=== PATIENT | female | born 1960 | race Caucasian/White ===

== ENCOUNTER 2017-05-06 10:20 | Observation (INO) | payer BC, OTHER ==
[2017-05-06] MEDS ORDERED: Sodium Chloride 0.9% 2.5 ML Syringe FLUSH PRN (10:53)
[2017-05-06] MEDS ORDERED: Sodium Chloride 0.9% 10 ML Syringe FLUSH PRN (10:53)
[2017-05-06] MEDS ORDERED: Sodium Chloride 0.9% 1,000 ML IV ONE (10:56)
--- NOTE | 2017-05-06 10:58 | EDM.PDOC ---
ED HPI GENERAL MEDICAL PROBLEM - General Chief Complaint: Neuro Symptoms/Deficits Stated Complaint: light headed Time Seen by Provider: 05/06/17 10:41 - History of Present Illness INITIAL COMMENTS - FREE TEXT/NARRATIVE: HISTORY AND PHYSICAL: History of present illness: Patient is a 56-year-old white female who presents with a concern of dizziness and near syncope over last 2 days she's had multiple episodes. Patient denies chest pain palpitations or other concern Review of systems: As per history of present illness and below otherwise all systems reviewed and negative. Past medical history: As per history of present illness and as reviewed below otherwise noncontributory. Surgical history: As per history of present illness and as reviewed below otherwise noncontributory. Social history: No reported history of drug or alcohol abuse. Family history: As per history of present illness and as reviewed below otherwise noncontributory. Physical exam: HEENT: Atraumatic, normocephalic, pupils reactive, negative for conjunctival pallor or scleral icterus, mucous membranes moist, throat clear, neck supple, nontender, trachea midline. Lungs: Clear to auscultation, breath sounds equal bilaterally, chest nontender. Heart: S1S2, regular, negative for clicks, rubs, or JVD. Abdomen: Soft, nondistended, nontender. Negative for masses or hepatosplenomegaly. Negative for costovertebral tenderness. Pelvis: Stable nontender. Genitourinary: Deferred. Rectal: Deferred. Extremities: Atraumatic, negative for cords or calf pain. Neurovascular unremarkable. Neuro: Awake, alert, oriented. Cranial nerves II through XII unremarkable. Cerebellum unremarkable. Motor and sensory unremarkable throughout. Exam nonfocal. Diagnostics: CBC CMP PT/INR troponin d-dimer chest x-ray EKG CT brain orthostatic vital signs Therapeutics: Normal saline 1 L bolus Impression: #1 near syncope Definitive disposition and diagnosis as appropriate pending reevaluation and review of above. - Related Data Allergies Allergy/AdvReac Type Severity Reaction Status Date / Time No Known Allergies Allergy Verified 05/06/17 10:28 Home Meds: Home Meds . [No Known Home Meds] 05/06/17 [History] Past Medical History HEENT History: Reports: None Cardiovascular History: Reports: None Respiratory History: Reports: None Gastrointestinal History: Reports: None Genitourinary History: Reports: None WREATH MAKER History: Reports: Musculoskeletal History: Reports: None Neurological History: Reports: None Psychiatric History: Reports: None Endocrine/Metabolic History: Reports: None Hematologic History: Reports: None Immunologic History: Reports: None Oncologic (Cancer) History: Reports: None Dermatologic History: Reports: None - Infectious Disease History Infectious Disease History: Reports: Chicken Pox, Measles, Mumps - Past Surgical History Head Surgeries/Procedures: Reports: None HEENT Surgical History: Reports: None Cardiovascular Surgical History: Reports: None Respiratory Surgical History: Reports: None GI Surgical History: Reports: None Female Surgical History: Reports: None Endocrine Surgical History: Reports: None Neurological Surgical History: Reports: None Musculoskeletal Surgical History: Reports: None Dermatological Surgical History: Reports: None Social & Family History - Family History Family Medical History: Noncontributory - Tobacco Use Smoking Status *Q: Never Smoker - Caffeine Use Caffeine Use: Reports: Coffee - Recreational Drug Use Recreational Drug Use: No ED ROS GENERAL - Review of Systems Review Of Systems: ROS reveals no pertinent complaints other than HPI. ED EXAM, GENERAL - Physical Exam Exam: See Below (See dictation) Course - Vital Signs Last Recorded V/S: Last Vital Signs Temp 36.8 C 05/06/17 10:28 Pulse 69 05/06/17 10:28 Resp 18 05/06/17 10:28 BP 154/99 H 05/06/17 10:28 Pulse Ox 95 05/06/17 10:28 - Orders/Labs/Meds Orders: Active Orders 24 hr Category Date Time Status Cardiac Monitoring [RC] . DIRECTED Care 05/06/17 10:52 Active EKG Documentation Completion [RC] STAT Care 05/06/17 10:52 Active Chest 1V Frontal [CR] Stat Exams 05/06/17 10:53 Taken Head wo Cont [CT] Stat Exams 05/06/17 10:52 Taken Sodium Chloride 0.9% [Saline Flush] Med 05/06/17 10:53 Active 10 ml FLUSH ASDIRECTED PRN Sodium Chloride 0.9% [Saline Flush] Med 05/06/17 10:53 Active 2.5 ml FLUSH ASDIRECTED PRN Saline Lock Insert [OM.PC] Stat Oth 05/06/17 10:52 Ordered Medication Orders Sodium Chloride (Saline Flush) 10 ml FLUSH ASDIRECTED PRN PRN Reason: Keep Vein Open Sodium Chloride (Saline Flush) 2.5 ml FLUSH ASDIRECTED PRN PRN Reason: Keep Vein Open Labs: Laboratory Tests 05/06/17 05/06/17 05/06/17 Range/Units 11:05 11:05 11:05 WBC 5.49 (4.0-11.0) K/uL RBC 5.26 (4.30-5.90) M/uL Hgb 15.7 (12.0-16.0) g/dL Hct 45.4 (36.0-46.0) % MCV 86.3 (80.0-98.0) fL MCH 29.8 (27.0-32.0) pg MCHC 34.6 (31.0-37.0) g/dL RDW Std Deviation 39.3 (28.0-62.0) fl RDW Coeff of Gabriel 13 (11.0-15.0) % Plt Count 248 (150-400) K/uL MPV 9.70 (7.40-12.00) fL Neut % (Auto) 52.9 (48.0-80.0) % Lymph % (Auto) 35.9 (16.0-40.0) % [place] % (Auto) 7.5 (0.0-15.0) % Eos % (Auto) 3.3 (0.0-7.0) % Baso % (Auto) 0.4 (0.0-1.5) % Neut # (Auto) 2.9 (1.4-5.7) K/uL Lymph # (Auto) 2.0 (0.6-2.4) K/uL [place] # (Auto) 0.4 (0.0-0.8) K/uL Eos # (Auto) 0.2 (0.0-0.7) K/uL Baso # (Auto) 0.0 (0.0-0.1) K/uL Nucleated RBC % 0.0 /100WBC Nucleated RBCs # 0 K/uL INR 1.00 (0.86-1.11) D-Dimer, Quantitative < 0.19 (0.0-0.52) mg/LFEU Sodium 140 (136-146) mmol/L Potassium 4.5 (3.5-5.1) mmol/L Chloride 104 (98-110) mmol/L Carbon Dioxide 28 (21-31) mmol/L BUN 12 (6.0-23.0) mg/dL Creatinine 0.7 (0.6-1.5) mg/dL Est Cr Clr Drug Dosing 88.30 mL/min Estimated GFR (MDRD) > 60.0 ml/min Glucose 95 (60-110) mg/dL Calcium 9.3 (8.8-10.8) mg/dL Total Bilirubin 0.5 (0.1-1.5) mg/dL AST 17 (5-40) IU/L ALT 34 (8-54) IU/L Alkaline Phosphatase 58 (40-150) Troponin I < 0.10 (0.0-0.29) NG/ML Total Protein 7.6 (6.0-8.0) g/dL Albumin 4.4 (3.5-5.0) g/dL Globulin 3.2 (2.0-3.5) g/dL Albumin/Globulin Ratio 1.4 (1.3-2.8) Meds: Medications Generic Name Dose Route Start Last Admin Trade Name Freq PRN Reason Stop Dose Admin Sodium Chloride 10 ml 05/06/17 10:53 Saline Flush FLUSH ASDIRECTED PRN Keep Vein Open Sodium Chloride 2.5 ml 05/06/17 10:53 Saline Flush FLUSH ASDIRECTED PRN Keep Vein Open Discontinued Medications Generic Name Dose Route Start Last Admin Trade Name Freq PRN Reason Stop Dose Admin Sodium Chloride 1,000 mls @ 999 mls/hr 05/06/17 10:56 05/06/17 11:22 Normal Saline IV 05/06/17 11:56 999 mls/hr STAT ONE Administration Departure - Departure Time of Disposition: 12:15 Disposition: Refer to Observation Condition: Good Clinical Impression: Near syncope - Discharge Information Referrals: PCP,Unknown [Primary Care Provider] - Forms: ED Department Discharge - My Orders Last 24 Hours: My Active Orders 05/06/17 10:52 Cardiac Monitoring [RC] . DIRECTED EKG Documentation Completion [RC] STAT Head wo Cont [CT] Stat Saline Lock Insert [OM.PC] Stat 05/06/17 10:53 Chest 1V Frontal [CR] Stat Sodium Chloride 0.9% [Saline Flush] 10 ml FLUSH ASDIRECTED PRN Sodium Chloride 0.9% [Saline Flush] 2.5 ml FLUSH ASDIRECTED PRN - Assessment/Plan Last 24 Hours: My Active Orders 05/06/17 10:52 Cardiac Monitoring [RC] . DIRECTED EKG Documentation Completion [RC] STAT Head wo Cont [CT] Stat Saline Lock Insert [OM.PC] Stat 05/06/17 10:53 Chest 1V Frontal [CR] Stat Sodium Chloride 0.9% [Saline Flush] 10 ml FLUSH ASDIRECTED PRN Sodium Chloride 0.9% [Saline Flush] 2.5 ml FLUSH ASDIRECTED PRN
[2017-05-06 11:28] LABS: CHLORIDE,CL 104 mmol/L (98-110); SODIUM,NA 140 mmol/L (136-146)
--- NOTE | 2017-05-06 15:48 | PCM.HP ---
H&P History of Present Illness - General Date of Service: 05/06/17 Admit Problem/Dx: Admission Diagnosis/Problem Admission Diagnosis/Problem Near syncope Source of Information: Patient, Provider - History of Present Illness Initial Comments - Free Text/Narative: She drove to [place] and back. She "ate out". She noted that she had several episodes of transient light headedness as if she was about to faint. She notes that she has no known prior history of hypertension. Headache Pain Score (Numeric/FACES): 2 - Related Data Allergies/Adverse Reactions: Allergies Allergy/AdvReac Type Severity Reaction Status Date / Time No Known Allergies Allergy Verified 05/06/17 10:28 Home Medications: Home Meds . [No Known Home Meds] 05/06/17 [History] Past Medical History HEENT History: Reports: None Cardiovascular History: Reports: None. Denies: CAD, Heart Failure, Heart Murmur , Hypertension, PA Respiratory History: Reports: None. Denies: COPD Gastrointestinal History: Reports: None. Denies: Cirrhosis Genitourinary History: Reports: None. Denies: Chronic Renal Insuffiency DIRECTOR INSTITUTION History: Reports: Musculoskeletal History: Reports: None Neurological History: Reports: None. Denies: CVA Psychiatric History: Reports: None Endocrine/Metabolic History: Reports: None. Denies: Diabetes, Type I, Diabetes , Type II Hematologic History: Reports: None Immunologic History: Reports: None Oncologic (Cancer) History: Reports: None Dermatologic History: Reports: None - Infectious Disease History Infectious Disease History: Reports: Chicken Pox, Measles, Mumps - Past Surgical History Head Surgeries/Procedures: Reports: None HEENT Surgical History: Reports: None Cardiovascular Surgical History: Reports: None Respiratory Surgical History: Reports: None GI Surgical History: Reports: None Female Surgical History: Reports: None Endocrine Surgical History: Reports: None Neurological Surgical History: Reports: None Musculoskeletal Surgical History: Reports: None Dermatological Surgical History: Reports: None Social & Family History - Family History Family Medical History: Noncontributory - Tobacco Use Smoking Status *Q: Never Smoker Second Hand Smoke Exposure: No - Caffeine Use Caffeine Use: Reports: Coffee - Alcohol Use Days Per Week of Alcohol Use: 1 Number of Drinks Per Day: 3 Total Drinks Per Week: 3 Date of Last Drink: 05/02/17 - Recreational Drug Use Recreational Drug Use: No H&P Review of Systems - Review of Systems: Review Of Systems: See Below General: Denies: Fever, Chills HEENT: Denies: Sore Throat Pulmonary: Denies: Shortness of Breath, Cough, Sputum Cardiovascular: Denies: Chest Pain, Palpitations, Dyspnea on Exertion Gastrointestinal: Denies: Abdominal Pain, Anorexia, Black Stool, Bloody Stool, Decreased Appetite, Difficulty Swallowing, Hematemesis, Hematochezia, Melena Genitourinary: Denies: Dysuria, Frequency, Hematuria Exam - Exam Exam: See Below - Vital Signs Vital Signs: Last Vital Signs Temp 98.4 F 05/06/17 15:29 Pulse 66 05/06/17 15:29 Resp 18 05/06/17 15:29 BP 142/81 H 05/06/17 15:29 Pulse Ox 96 05/06/17 15:32 Orthostatic Blood Pressure [ 154/89 Standing] Orthostatic Blood Pressure [ 142/81 Supine] Orthostatic Blood Pressure [ 147/93 Sitting] Weight: 98.067 kg - Exam General: Alert, Oriented, Cooperative HEENT: Conjunctiva Clear, EOMI Neck: Supple, Trachea Midline Lungs: Clear to Auscultation, Normal Respiratory Effort Cardiovascular: Regular Rate, Regular Rhythm GI/Abdominal Exam: Soft, Non-Tender (Female) Exam: Deferred Rectal (Female) Exam: Deferred Extremities: Normal Inspection, Non-Tender. No: Pedal Edema Neurological: Cranial Nerves Intact, Normal Speech Psychiatric: Alert, Normal Affect. No: Agitated - Patient Data Result Diagrams: 05/06/17 11:05 05/06/17 11:05 *Q Meaningful Use (ADM) - VTE *Q VTE Criteria *Q: - Stroke *Q Stroke Criteria *Q: - AMI *Q AMI Criteria *Q: - Problem List (1) Essential hypertension SNOMED Code(s): 22035809 ICD Code: I10 - ESSENTIAL (PRIMARY) HYPERTENSION Status: Acute Current Visit: Yes (2) Near syncope SNOMED Code(s): 847565926 ICD Code: R55 - SYNCOPE AND COLLAPSE Status: Acute Current Visit: Yes Problem List Initiated/Reviewed/Updated: Yes Orders Last 24hrs: Active Orders 24 hr Category Date Time Status Communication Order [RC] PER UNIT ROUTINE Care 05/06/17 15:39 Ordered Oxygen Therapy [RC] PRN Care 05/06/17 15:40 Ordered Telemetry Monitoring [Cardiac Monitoring] [RC] Q8H Care 05/06/17 12:26 Active VTE/DVT Education [RC] PER UNIT ROUTINE Care 05/06/17 15:40 Ordered Vital Signs [RC] Q4H Care 05/06/17 15:40 Ordered 2 Gram Sodium Diet [DIET] Diet 05/06/17 Dinner Ordered CORTISOL [CHEM] Routine Lab 05/07/17 08:00 Ordered MAGNESIUM [CHEM] Routine Lab 05/06/17 15:40 Ordered T4 FREE [CHEM] Routine Lab 05/06/17 15:37 Ordered TSH [CHEM] Stat Lab 05/06/17 15:37 Ordered Resuscitation Status Routine Resus Stat 05/06/17 15:40 Ordered Medication Orders Sodium Chloride (Saline Flush) 10 ml FLUSH ASDIRECTED PRN PRN Reason: Keep Vein Open Sodium Chloride (Saline Flush) 2.5 ml FLUSH ASDIRECTED PRN PRN Reason: Keep Vein Open Assessment/Plan Comment:: orthostatic blood pressure measurements close monitoring telemetry 8 am cortisol thyroid functions. possible discharge in am. Shiraz Bauer MD
[2017-05-06] MEDS ORDERED: Acetaminophen 500 MG Tab PO PRN (15:49)
[2017-05-06] MEDS ORDERED: Ibuprofen 400 MG Tab PO PRN ×2 (18:30→18:31)
[2017-05-06] MEDS: Lisinopril 10 MG Tab PO SCH ×2 (19:24→21:00)
[2017-05-07] MEDS: Lisinopril 10 MG Tab PO SCH (08:12)
--- NOTE | 2017-05-07 13:05 | PCM.DCSUM1 ---
Discharge Summary - Hospital Course Brief History: she was admitted with periods of light headedness and feelings of near syncope. - Discharge Data Discharge Date: 05/07/17 Discharge Disposition: Home, Self-Care 01 Condition: Fair - Discharge Diagnosis/Problem(s) (1) Essential hypertension SNOMED Code(s): 10440869 ICD Code: I10 - ESSENTIAL (PRIMARY) HYPERTENSION Status: Acute Current Visit: Yes (2) Near syncope SNOMED Code(s): 548714770 ICD Code: R55 - SYNCOPE AND COLLAPSE Status: Acute Current Visit: Yes - Patient Summary/Data Hospital Course: she was noted to be hypertensive. She had negative orthostatic blood pressure changes. Her lab results including 8 am cortisol, chemistries and thyroid functions were normal. lipid panel is pending at discharge. She was started on lisinopril. Her blood pressure normalized and she is asymptomatic at discharge. - Discharge Plan Home Medications: Home Meds . [No Known Home Meds] 05/06/17 [History] Patient Handouts: Near-Syncope, [id number], Lisinopril tablets, Hypertension Referrals: Mary Santoyo SALON RECEPTIONIST [Nurse Practitioner] - (Please call [facility] on Monday to set up one week post hospital follow-up appointment with Mary Santoyo NP) - Patient Data Vitals - Most Recent: Last Vital Signs Temp 97.9 F 05/07/17 12:00 Pulse 63 05/07/17 04:00 Resp 16 05/07/17 12:00 BP 124/79 05/07/17 12:00 Pulse Ox 90 L 05/07/17 12:00 Orthostatic Blood Pressure [ 127/85 Standing] Orthostatic Blood Pressure [ 122/73 Supine] Orthostatic Blood Pressure [ 120/77 Sitting] Weight - Most Recent: 98.067 kg I&O - Last 24 hours: Intake & Output 05/06/17 05/07/17 05/07/17 22:59 06:59 14:59 Intake Total 450 400 Output Total 450 1200 Balance 0 -800 Lab Results - Last 24 hrs: Laboratory Results - last 24 hr 05/07/17 Range/Units 08:00 Cortisol 9.4 (7.9-17.3) ug/dL Med Orders - Current: Current Medications Acetaminophen (Tylenol Extra Strength) 500 mg PO Q4H PRN PRN Reason: Pain Last Admin: 05/06/17 16:44 Dose: 500 mg Ibuprofen (Motrin) 400 mg PO Q6H PRN PRN Reason: Pain Last Admin: 05/06/17 19:24 Dose: 400 mg Lisinopril (Prinivil) 10 mg PO BID TOOTIE Last Admin: 05/07/17 08:12 Dose: 10 mg Sodium Chloride (Saline Flush) 10 ml FLUSH ASDIRECTED PRN PRN Reason: Keep Vein Open Sodium Chloride (Saline Flush) 2.5 ml FLUSH ASDIRECTED PRN PRN Reason: Keep Vein Open Discontinued Medications Sodium Chloride (Normal Saline) 1,000 mls @ 999 mls/hr IV STAT ONE Stop: 05/06/17 11:56 Last Admin: 05/06/17 11:22 Dose: 999 mls/hr *Q Meaningful Use (DIS) - VTE *Q VTE Criteria *Q: - Stroke *Q Stroke Criteria *Q: - AMI *Q AMI Criteria *Q:
[2017-05-07] MEDS ORDERED: Lisinopril 10 MG Tab PO ONE (13:11)
--- NOTE | 2017-05-08 13:25 | CR ---
EXAM DATE: 05/06/17 PATIENT'S AGE: 56 Patient: ONEIL MARSH Facility: [place], [place] Site . Site : 1960 Study: XRay Chest [id number]/28/2017 11:29:23 AM Ordering Physician: Michael Farr Final Report: HISTORY: Chest pain and shortness of breath. Findings: Single AP view of the chest is provided. The lung volumes are diminished but the lungs are clear and there is no evidence for pleural effusion or pneumothorax. Cardiac silhouette size is within normal limits. Dictated by Larry Gil MD @ May 06 2017 11:49AM (Electronic Signature) Report Signed by Proxy. EVERT
--- NOTE | 2017-05-08 13:26 | CT ---
EXAM DATE: 05/06/17 PATIENT'S AGE: 56 Patient: ONEIL MARSH Facility: [facility], [place], [place] : 1960 Study: CT Head [id number]/[id number] 11:49:52 AM Ordering Physician: BLANCA Final Report: HISTORY: Lightheadedness, dizziness. TECHNIQUE: Noncontrast head CT. COMPARISON: No prior. FINDINGS: There is no acute ischemic infarct or acute intracranial hemorrhage. No mass effect or midline shift. No hydrocephalus. No acute loss of levy-white differentiation. No extra-axial collection or hematoma. The mastoid air cells are clear. Paranasal sinuses clear. No skull fracture. IMPRESSION: No acute intracranial disease. Dictated by Jose Garcia MD @ 05/06/2017 12:05:19 PM Dictated by: Jose Garcia MD @ 05/06/2017 12:05:23 (Electronic Signature) Report Signed by Proxy. [facility]
== END 2017-05-07 13:29 | disposition home or self-care (01) ==
LOC: MW.ED 10:20 → MW.ICU 12:16
PROVIDERS: ADMIT Family Medicine; ATTEND Family Medicine
DX: I10 Essential (primary) hypertension (principal); R55 Syncope and collapse
CPT/HCPCS: 36415; 70450; 71010; 80053; 80061; 82533; 83735; 84439; 84443; 84484; 85025; 85379; 85610; 93005; 96360; 99285; A9270; G0378; J7040; 99284

== ENCOUNTER 2020-08-11 08:11 | Day surgery (SDC) | payer MEDICAID, OTHER ==
[~2020-08-11 08:11] MED LIST: Bupivacaine 0.25% 10 ML SDV ONE; Desflurane 240 ML Bottle ONE; Dexamethasone 4 MG/ML 5 ML MDV ONE; Fluorescein 5 ML Vial ONE; Glycopyrrolate 0.2 MG/ML SDV ONE; Ketorolac 30 MG/ML SDV ONE; Midazolam 1 MG/ML 2 ML SDV ONE; Morphine 10 MG/ML Syringe ONE; Ondansetron 4 MG/2 ML SDV ONE; Propofol 200 MG/20 ML SDV ONE; Rocuronium Bromide 50 MG/5 ML Syringe ONE; Sodium Chloride 0.9% 20 ML ONE; Sugammadex Sodium 200 MG/2 ML VIAL ONE; ceFAZolin 1 GM Vial ONE; ceFAZolin 2 GM in Premix Bag 1 BAG IV ONE; fentaNYL 100 MCG/2 ML SDV ONE
[2020-08-11] MEDS: Lactated Ringers 1,000 ML IV SCH ×2 (08:45→12:20)
[2020-08-11] MEDS ORDERED: Citric Acid/Sodium Citrate Solution 30 ML Cup PO ONE (09:08)
--- NOTE | 2020-08-11 09:10 | PCM.PREANE ---
Preanesthetic Assessment - Anesthesia/Transfusion/Family Hx Anesthesia History: Prior Anesthesia Without Reaction (colonoscopy) Family History of Anesthesia Reaction: No Transfusion History: No Prior Transfusion(s) - Review of Systems General: No Symptoms Pulmonary: No Symptoms Cardiovascular: No Symptoms Gastrointestinal: Other (heartburn) Neurological: No Symptoms Other: Reports: None - Physical Assessment NPO Status Date: 08/10/20 Vital Signs: Last Vital Signs Temp 97.7 F 08/11/20 08:55 Pulse 64 08/11/20 08:55 Resp 16 08/11/20 08:55 BP 124/77 08/11/20 08:55 Pulse Ox 93 L 08/11/20 08:55 Height: 5 ft 7 in Weight: 88.904 kg ASA Class: 2 Mental Status: Alert & Oriented x3 Airway Class: Mallampati = 2 Dentition: Reports: Normal Dentition ROM/Head Extension: Full Lungs: Clear to Auscultation, Normal Respiratory Effort Cardiovascular: Regular Rate, Regular Rhythm - Lab Values: Laboratory Last Values WBC 5.48 K/uL (4.0-11.0) 08/11/20 08:32 RBC 5.26 M/uL (4.30-5.90) 08/11/20 08:32 Hgb 15.1 g/dL (12.0-16.0) 08/11/20 08:32 Hct 46.4 % (36.0-46.0) H 08/11/20 08:32 MCV 88.2 fL (80.0-98.0) 08/11/20 08:32 MCH 28.7 pg (27.0-32.0) 08/11/20 08:32 MCHC 32.5 g/dL (31.0-37.0) 08/11/20 08:32 RDW Std Deviation 39.8 fl (28.0-62.0) 08/11/20 08:32 RDW Coeff of Gabriel 13 % (11.0-15.0) 08/11/20 08:32 Plt Count 273 K/uL (150-400) 08/11/20 08:32 MPV 10.10 fL (7.40-12.00) 08/11/20 08:32 Neut % (Auto) 46.7 % (48.0-80.0) L 08/11/20 08:32 Lymph % (Auto) 39.8 % (16.0-40.0) 08/11/20 08:32 [place] % (Auto) 9.5 % (0.0-15.0) 08/11/20 08:32 Eos % (Auto) 3.6 % (0.0-7.0) 08/11/20 08:32 Baso % (Auto) 0.4 % (0.0-1.5) 08/11/20 08:32 Neut # (Auto) 2.6 K/uL (1.4-5.7) 08/11/20 08:32 Lymph # (Auto) 2.2 K/uL (0.6-2.4) 08/11/20 08:32 [place] # (Auto) 0.5 K/uL (0.0-0.8) 08/11/20 08:32 Eos # (Auto) 0.2 K/uL (0.0-0.7) 08/11/20 08:32 Baso # (Auto) 0.0 K/uL (0.0-0.1) 08/11/20 08:32 Nucleated RBC % 0.0 /100WBC 08/11/20 08:32 Nucleated RBCs # 0 K/uL 08/11/20 08:32 - Allergies Allergies/Adverse Reactions: Allergies Allergy/AdvReac Type Severity Reaction Status Date / Time No Known Allergies Allergy Verified 08/11/20 08:32 - Blood Blood Available: Yes - Anesthesia Plan Pre-Op Medication Ordered: Antacids (bicitra) - Acknowledgements Anesthesia Type Planned: General Anesthesia Pt an Appropriate Candidate for the Planned Anesthesia: Yes Alternatives and Risks of Anesthesia Discussed w Pt/Guardian: Yes Pt/Guardian Understands and Agrees with Anesthesia Plan: Yes PreAnesthesia Questionnaire HEENT History: Reports: Other (See Below) Other HEENT History: wears glasses, has dental braces Cardiovascular History: Reports: None Respiratory History: Reports: None Gastrointestinal History: Reports: None Genitourinary History: Reports: None SANITATION SUPERINTENDENT History: Reports: , Spontaneous Musculoskeletal History: Reports: None Neurological History: Reports: None Psychiatric History: Reports: None Endocrine/Metabolic History: Reports: Obesity/BMI 30+, Osteopenia Hematologic History: Reports: None Immunologic History: Reports: None Oncologic (Cancer) History: Reports: None Dermatologic History: Reports: None - Infectious Disease History Infectious Disease History: Reports: Chicken Pox, Measles, Mumps - Past Surgical History Head Surgeries/Procedures: Reports: None HEENT Surgical History: Reports: None Cardiovascular Surgical History: Reports: None Respiratory Surgical History: Reports: None GI Surgical History: Reports: Colonoscopy Female Surgical History: Reports: None Endocrine Surgical History: Reports: None Neurological Surgical History: Reports: None Musculoskeletal Surgical History: Reports: None Oncologic Surgical History: Reports: None Dermatological Surgical History: Reports: None - SUBSTANCE USE Tobacco Use Status *Q: Never Tobacco User - HOME MEDS Home Medications: Home Meds Calcium Carbonate [Calcium] 150 mg PO DAILY 08/06/20 [History] Fish Oil/Nabb-3 Fatty Acids [Fish Oil 1,000 MG] 1,000 mg PO DAILY 08/06/20 [History] Multivitamin 1 tab PO DAILY 08/06/20 [History] Psyllium Husk [Daily Fiber] 500 mg PO BID 08/06/20 [History] - CURRENT (IN HOUSE) MEDS Current Meds: Current Medications Lactated Ringer's (Ringers, Lactated) 1,000 mls @ 125 mls/hr IV ASDIRECTED TOOTIE Discontinued Medications Bupivacaine HCl (Sensorcaine-Mpf 0.25%) Confirm Administered Dose 10 ml .ROUTE .STK-MED ONE Stop: 08/11/20 07:46 Cefazolin Sodium (Ancef) Confirm Administered Dose 2 gm .ROUTE .STK-MED ONE Stop: 08/11/20 07:46 Desflurane (Suprane) Confirm Administered Dose 240 ml .ROUTE .STK-MED ONE Stop: 08/11/20 07:34 Dexamethasone (Dexamethasone) Confirm Administered Dose 20 mg .ROUTE .STK-MED ONE Stop: 08/11/20 07:46 Fentanyl (Sublimaze) Confirm Administered Dose 200 mcg .ROUTE .STK-MED ONE Stop: 08/11/20 07:45 Fluorescein Sodium (Ak-Fluor) Confirm Administered Dose 5 ml .ROUTE .STK-MED ONE Stop: 08/11/20 07:46 Glycopyrrolate (Robinul) Confirm Administered Dose 0.2 mg .ROUTE .STK-MED ONE Stop: 08/11/20 07:46 Acetaminophen (Ofirmev 1000 Mg/100 Ml) Confirm Administered Dose 100 mls @ as directed .ROUTE .STK-MED ONE Stop: 08/11/20 07:34 Sodium Chloride (Normal Saline) Confirm Administered Dose 20 mls @ as directed .ROUTE .STK-MED ONE Stop: 08/11/20 07:46 Cefazolin Sodium/Dextrose 2 gm (/ Premix) 50 mls @ 100 mls/hr IV ONETIME ONE Stop: 08/11/20 08:24 Ketorolac Tromethamine (Toradol) Confirm Administered Dose 30 mg .ROUTE .STK-MED ONE Stop: 08/11/20 07:46 Midazolam HCl (Versed 1 Mg/Ml) Confirm Administered Dose 2 mg .ROUTE .ST-MED ONE Stop: 08/11/20 07:45 Morphine Sulfate (Morphine) Confirm Administered Dose 10 mg .ROUTE .ST-MED ONE Stop: 08/11/20 07:46 Ondansetron HCl (Zofran) Confirm Administered Dose 4 mg .ROUTE .ST-MED ONE Stop: 08/11/20 07:45 Propofol (Diprivan 20 Ml) Confirm Administered Dose 600 mg .ROUTE .ST-MED ONE Stop: 08/11/20 07:45 Rocuronium [place] (Rocuronium [place]) Confirm Administered Dose 100 mg .ROUTE .STK-MED ONE Stop: 08/11/20 07:54 Sugammadex Sodium ([place]) Confirm Administered Dose 200 mg .ROUTE .ST-MED ONE Stop: 08/11/20 07:34
[2020-08-11 09:13] LABS: BLOOD UREA NITROGEN,BUN 14 mg/dL (7.0-18.0); CARBON DIOXIDE,CO2 30.3 mmol/L (21.0-32.0); CHLORIDE,CL 106 mmol/L (98-107); GLUCOSE RANDOM 91 mg/dL (74-106); SODIUM,NA 143 mmol/L (136-145)
[2020-08-11] MEDS ORDERED: Citric Acid/Sodium Citrate Solution 30 ML Cup ONE (09:25)
[2020-08-11] MEDS ORDERED: Morphine 10 MG/ML Syringe IVPUSH ONE (10:15)
[2020-08-11] MEDS ORDERED: Furosemide 40 MG/4 ML VIAL ONE (10:35)
[2020-08-11] MEDS ORDERED: Sugammadex Sodium 200 MG/2 ML VIAL ONE (10:45)
[2020-08-11] MEDS ORDERED: Acetaminophen/oxyCODONE 325-5 MG Tab PO PRN ×2 (11:08)
[2020-08-11] MEDS ORDERED: Promethazine 25 MG/ML SDV IM PRN (11:08)
[2020-08-11] MEDS ORDERED: Ketorolac 30 MG/ML SDV IVPUSH ONE (11:08)
[2020-08-11] MEDS ORDERED: Morphine 4 MG/ML Syringe IVPUSH PRN (11:08)
[2020-08-11] MEDS ORDERED: Ondansetron 4 MG/2 ML SDV IVPUSH PRN (11:08)
--- NOTE | 2020-08-11 11:14 | PCM.OPNOTE ---
- General Post-Op/Procedure Note Date of Surgery/Procedure: 08/11/20 Operative Procedure(s): total vaginal hysterectomy anterior colporrhaphy cystoscopy Findings: 3rd degree uterine prolapse, 4th degree cystocele Pre Op Diagnosis: incomplete uterovaginal prolapse. Post-Op Diagnosis: Same Primary Surgeon: Mary Hammond Secondary Surgeon: Kilo Trammell Anesthesia Provider: Khurram Ceron Firmware Architect: Galdino Kathleen Pathology: uterus and vaginal mucosa Fluid Replacement, Intraop: 1,500 EBL in mLs: 75 Complications: None Known Condition: Good
[2020-08-11] MEDS ORDERED: Ketorolac 30 MG/ML SDV IVPUSH SCH (11:15)
--- NOTE | 2020-08-11 11:46 | PCM.POSTAN ---
POST ANESTHESIA ASSESSMENT - MENTAL STATUS Mental Status: Alert, Oriented - VITAL SIGNS Vital Signs: Last Vital Signs Temp 98.1 F 08/11/20 10:58 Pulse 54 L 08/11/20 11:38 Resp 10 L 08/11/20 11:38 BP 117/65 08/11/20 11:38 Pulse Ox 98 08/11/20 11:38 - RESPIRATORY Respiratory Status: Respiratory Rate WNL, Airway Patent, O2 Saturation Stable - CARDIOVASCULAR CV Status: Pulse Rate WNL, Blood Pressure Stable - GASTROINTESTINAL GI Status: No Symptoms - POST OP HYDRATION Hydration Status: Adequate & Stable
--- NOTE | 2020-08-11 12:21 | OR ---
SURGEON: Mary Hammond M.D. DATE OF PROCEDURE: 08/11/2020 PREOPERATIVE DIAGNOSIS: Incomplete uterovaginal prolapse. POSTOPERATIVE DIAGNOSIS: Incomplete uterovaginal prolapse. PROCEDURE: Total vaginal hysterectomy, cystoscopy, and anterior colporrhaphy. PRIMARY SURGEON: Mary Hammond MD CLAIMS DIRECTOR: Kilo Trammell MD ANESTHESIA: General endotracheal. FLUIDS: 1500 mL of crystalloid. ESTIMATED BLOOD LOSS: 75 mL. FINDINGS: Third-degree uterine prolapse, fourth-degree cystocele. Upon cystoscopy, there was copious flow from bilateral ureteral orifices. There was also no evidence of any trauma to the bladder mucosa. COMPLICATIONS: None known. DISPOSITION: Stable to Recovery. BRIEF HISTORY: This is a 60-year-old female who has noticed her cervix protruding from the vaginal orifice and she has had some low back pain, pelvic pressure, difficulty initiating urination, and presents for treatment. She was offered pessary versus vaginal hysterectomy with anterior colporrhaphy. She did appear to have good support from the uterosacral ligaments and there was no defect posteriorly. She declined pessary and desired to proceed with surgical intervention with risks discussed including bleeding; infection; injury to bowel, bladder, blood vessels, or other organs; risk of thromboembolic event; risk of anesthesia; risk of recurrence of 30%; and risk of change in sexual function. Understanding all these risks, she does desire to proceed. DESCRIPTION OF PROCEDURE: With the patient in the dorsal lithotomy position, under adequate general endotracheal anesthesia, the perineum and vagina were prepped with Betadine and draped in usual fashion for vaginal surgery. SCDs were in place. Chiu catheter had been placed, and an appropriate time-out was held. She had received 2 g of Ancef IV. After the time-out, a weighted speculum was placed posteriorly and right angle retractor was placed anteriorly. The cervix was grasped with a Aaron tenaculum, circumscribed using electrocautery. The vaginal mucosa was pushed away from the cervix. The anterior cul-de-sac was entered sharply using Metzenbaum scissors. A finger was placed into the peritoneal cavity and there was no evidence of any adhesions. Therefore, the right angle retractor was placed anteriorly. The posterior cul-de-sac was entered sharply. A Abdirizak-Auvard speculum was placed posteriorly. The uterosacral ligaments were cross clamped, cut, and ligated using Sean ligature of 2-0 Polysorb. This was retained for support of the vaginal apex. Two additional pedicles were taken on the right and the left. The upper pedicle being doubly clamped and doubly ligated over the utero-ovarian ligament. The ovaries and tubes were inspected and appeared normal. These ligaments were inspected and were hemostatic. Therefore, the retained suture was released. The two lower pedicles were carefully inspected and were hemostatic. Therefore, the retained uterosacral ligament ligatures were ligated to the vaginal apices bilaterally. The anterior defect was then assessed, and I felt that it was best to proceed from inferior to cephalad for repair of the anterior defect. Therefore, the vaginal cuff was closed anterior to posteriorly using a running lock suture of 0 Polysorb. Approximately 1.5 cm cephalad from the urethral meatus, the vaginal mucosa was grasped with an Allis clamp. Hydrodissection was performed cephalad towards the vaginal cuff. A scalpel was used to incise the vaginal mucosa. The vaginal mucosa was undermined, and the muscularis layer from the overlying vaginal mucosa and reapproximated in midline using multiple interrupted mattress sutures of 2-0 Polysorb. At this point, cystoscopy was performed after IV fluorescein and Lasix had been given. There was no evidence of any trauma to the bladder mucosa. Both ureteral orifices were identified and there was good flow of urine, which was bright green due to the fluorescein indicating intact ureters with good flow. Therefore, cystoscopy was completed. A new catheter was placed. The vaginal mucosa was very slightly trimmed and closed with a running lock suture of 2-0 Polysorb. The vagina was packed with vaginal packing instilled with water-based lubricant. Final sponge, needle, and instrument counts were reported as correct. There were no known complications. The patient was transferred to Recovery in good condition. PRAMOD / CHERYL /[id number]
[2020-08-11] MEDS: Ketorolac 30 MG/ML SDV IVPUSH SCH ×2 (15:58→22:11)
[2020-08-12] MEDS: Ketorolac 30 MG/ML SDV IVPUSH SCH (05:18)
[2020-08-12 06:15] LABS: BLOOD UREA NITROGEN,BUN 17 mg/dL (7.0-18.0); CARBON DIOXIDE,CO2 27.7 mmol/L (21.0-32.0); CHLORIDE,CL 102 mmol/L (98-107); GLUCOSE RANDOM 103 mg/dL (74-106); POTASSIUM,K 4.5 mmol/L (3.5-5.1); SODIUM,NA 138 mmol/L (136-145)
--- NOTE | 2020-08-12 08:00 | PCM48HPAN ---
Post Anesthesia Note - EVALUATION WITHIN 48HRS OF ANESTHETIC Vital Signs in Normal Range: Yes Patient Participated in Evaluation: Yes Respiratory Function Stable: Yes Airway Patent: Yes Cardiovascular Function Stable: Yes Hydration Status Stable: Yes Pain Control Satisfactory: Yes Nausea and Vomiting Control Satisfactory: Yes Mental Status Recovered: Yes Vital Signs: Last Vital Signs Temp 36.6 C 08/12/20 04:00 Pulse 50 L 08/12/20 04:00 Resp 18 08/12/20 04:00 BP 88/48 L 08/12/20 04:00 Pulse Ox 95 08/12/20 04:00
--- NOTE | 2020-08-12 08:54 | PCM.SURGPN ---
- General Info Date of Service: 08/12/20 Date of Surgery/Procedure: 08/11/20 POD#: 1 Post-Op Diagnosis: incomplete uterovaginal prolapse Functional Status: Reports: Pain Controlled, Tolerating Diet, Ambulating. Denies: Urinating (catheter and packing taken out3 hours ago, no void yet.) - Review of Systems General: Reports: No Symptoms HEENT: Reports: No Symptoms Pulmonary: Reports: No Symptoms Cardiovascular: Reports: No Symptoms Gastrointestinal: Reports: No Symptoms Genitourinary: Reports: No Symptoms Musculoskeletal: Reports: No Symptoms Skin: Reports: No Symptoms Neurological: Reports: No Symptoms Psychiatric: Reports: No Symptoms - Patient Data Vitals - Most Recent: Last Vital Signs Temp 36.3 C 08/12/20 08:00 Pulse 62 08/12/20 08:00 Resp 17 08/12/20 08:00 BP 102/48 L 08/12/20 08:00 Pulse Ox 93 L 08/12/20 08:00 Weight - Most Recent: 88.904 kg I&O - Last 24 Hours: Intake & Output 08/11/20 08/12/20 08/12/20 22:59 06:59 14:59 Intake Total 420 1840 Output Total 350 1500 Balance 70 340 Lab Results Last 24 Hrs: Laboratory Results - last 24 hr 08/11/20 08/11/20 08/12/20 Range/Units 08:32 08:32 05:13 WBC 10.26 (4.0-11.0) K/uL RBC 4.40 (4.30-5.90) M/uL Hgb 12.6 (12.0-16.0) g/dL Hct 38.1 (36.0-46.0) % MCV 86.6 (80.0-98.0) fL MCH 28.6 (27.0-32.0) pg MCHC 33.1 (31.0-37.0) g/dL RDW Std Deviation 39.2 (28.0-62.0) fl RDW Coeff of Gabriel 12 (11.0-15.0) % Plt Count 255 (150-400) K/uL MPV 10.50 (7.40-12.00) fL Neut % (Auto) 70.4 (48.0-80.0) % Lymph % (Auto) 21.4 (16.0-40.0) % [place] % (Auto) 8.0 (0.0-15.0) % Eos % (Auto) 0.1 (0.0-7.0) % Baso % (Auto) 0.1 (0.0-1.5) % Neut # (Auto) 7.2 H (1.4-5.7) K/uL Lymph # (Auto) 2.2 (0.6-2.4) K/uL [place] # (Auto) 0.8 (0.0-0.8) K/uL Eos # (Auto) 0.0 (0.0-0.7) K/uL Baso # (Auto) 0.0 (0.0-0.1) K/uL Nucleated RBC % 0.0 /100WBC Nucleated RBCs # 0 K/uL Sodium 143 (136-145) mmol/L Potassium 4.0 (3.5-5.1) mmol/L Chloride 106 (98-107) mmol/L Carbon Dioxide 30.3 (21.0-32.0) mmol/L BUN 14 (7.0-18.0) mg/dL Creatinine 0.8 (0.6-1.0) mg/dL Est Cr Clr Drug Dosing 73.63 mL/min Estimated GFR (MDRD) > 60.0 ml/min Glucose 91 (74-106) mg/dL Calcium 9.0 (8.5-10.1) mg/dL Blood Type B POSITIVE Antibody Screen NEGATIVE 08/12/20 Range/Units 05:13 WBC (4.0-11.0) K/uL RBC (4.30-5.90) M/uL Hgb (12.0-16.0) g/dL Hct (36.0-46.0) % MCV (80.0-98.0) fL MCH (27.0-32.0) pg MCHC (31.0-37.0) g/dL RDW Std Deviation (28.0-62.0) fl RDW Coeff of Gabriel (11.0-15.0) % Plt Count (150-400) K/uL MPV (7.40-12.00) fL Neut % (Auto) (48.0-80.0) % Lymph % (Auto) (16.0-40.0) % [place] % (Auto) (0.0-15.0) % Eos % (Auto) (0.0-7.0) % Baso % (Auto) (0.0-1.5) % Neut # (Auto) (1.4-5.7) K/uL Lymph # (Auto) (0.6-2.4) K/uL [place] # (Auto) (0.0-0.8) K/uL Eos # (Auto) (0.0-0.7) K/uL Baso # (Auto) (0.0-0.1) K/uL Nucleated RBC % /100WBC Nucleated RBCs # K/uL Sodium 138 (136-145) mmol/L Potassium 4.5 (3.5-5.1) mmol/L Chloride 102 (98-107) mmol/L Carbon Dioxide 27.7 (21.0-32.0) mmol/L BUN 17 (7.0-18.0) mg/dL Creatinine 0.7 (0.6-1.0) mg/dL Est Cr Clr Drug Dosing 84.15 mL/min Estimated GFR (MDRD) > 60.0 ml/min Glucose 103 (74-106) mg/dL Calcium 8.8 (8.5-10.1) mg/dL Blood Type Antibody Screen Med Orders - Current: Current Medications Lactated Ringer's (Ringers, Lactated) 1,000 mls @ 125 mls/hr IV ASDIRECTED [facility] Last Admin: 08/11/20 12:20 Dose: 125 mls/hr Documented by: Ketorolac Tromethamine (Toradol) 30 mg IVPUSH Q6H [facility] Last Admin: 08/12/20 05:18 Dose: 30 mg Documented by: Morphine Sulfate (Morphine) 4 mg IVPUSH Q2H PRN PRN Reason: Pain (severe 7-10) Ondansetron HCl (Zofran) 4 mg IVPUSH Q6H PRN PRN Reason: Nausea/Vomiting Oxycodone/Acetaminophen (Percocet 325-5 Mg) 1 tab PO Q4H PRN PRN Reason: Pain (moderate 4-6) Last Admin: 08/11/20 18:16 Dose: 1 tab Documented by: Oxycodone/Acetaminophen (Percocet 325-5 Mg) 2 tab PO Q4H PRN PRN Reason: Pain (moderate 4-6) Promethazine HCl (Phenergan) 25 mg IM Q6H PRN PRN Reason: Nausea/Vomiting Discontinued Medications Bupivacaine HCl (Sensorcaine-Mpf 0.25%) Confirm Administered Dose 10 ml .ROUTE .STK-MED ONE Stop: 08/11/20 07:46 Cefazolin Sodium (Ancef) Confirm Administered Dose 2 gm .ROUTE .STK-MED ONE Stop: 08/11/20 07:46 Citric Acid/Sodium Citrate (Bicitra Solution) 15 ml PO ONETIME ONE Stop: 08/11/20 09:09 Last Admin: 08/11/20 09:35 Dose: 15 ml Documented by: Citric Acid/Sodium Citrate (Bicitra Solution) Confirm Administered Dose 30 ml .ROUTE .STK-MED ONE Stop: 08/11/20 09:26 Last Admin: 08/11/20 12:39 Dose: Not Given Documented by: Desflurane (Suprane) Confirm Administered Dose 240 ml .ROUTE .ST-MED ONE Stop: 08/11/20 07:34 Dexamethasone (Dexamethasone) Confirm Administered Dose 20 mg .ROUTE .STK-MED ONE Stop: 08/11/20 07:46 Fentanyl (Sublimaze) Confirm Administered Dose 200 mcg .ROUTE .STK-MED ONE Stop: 08/11/20 07:45 Fluorescein Sodium (Ak-Fluor) Confirm Administered Dose 5 ml .ROUTE .STK-MED ONE Stop: 08/11/20 07:46 Furosemide (Lasix) Confirm Administered Dose 40 mg .ROUTE .STK-MED ONE Stop: 08/11/20 10:36 Glycopyrrolate (Robinul) Confirm Administered Dose 0.2 mg .ROUTE .STK-MED ONE Stop: 08/11/20 07:46 Acetaminophen (Ofirmev 1000 Mg/100 Ml) Confirm Administered Dose 100 mls @ as directed .ROUTE .STK-MED ONE Stop: 08/11/20 07:34 Sodium Chloride (Normal Saline) Confirm Administered Dose 20 mls @ as directed .ROUTE .STK-MED ONE Stop: 08/11/20 07:46 Cefazolin Sodium/Dextrose 2 gm (/ Premix) 50 mls @ 100 mls/hr IV ONETIME ONE Stop: 08/11/20 08:24 Last Admin: 08/11/20 12:38 Dose: Not Given Documented by: Ketorolac Tromethamine (Toradol) Confirm Administered Dose 30 mg .ROUTE .STK-MED ONE Stop: 08/11/20 07:46 Ketorolac Tromethamine (Toradol) 30 mg IVPUSH ONETIME ONE Stop: 08/11/20 11:09 Last Admin: 08/11/20 12:37 Dose: Not Given Documented by: Ketorolac Tromethamine (Toradol) 30 mg IVPUSH Q6H [facility] Stop: 08/16/20 11:08 Last Admin: 08/11/20 12:38 Dose: Not Given Documented by: Midazolam HCl (Versed 1 Mg/Ml) Confirm Administered Dose 2 mg .ROUTE .STK-MED ONE Stop: 08/11/20 07:45 Morphine Sulfate (Morphine) Confirm Administered Dose 10 mg .ROUTE .STK-MED ONE Stop: 08/11/20 07:46 Morphine Sulfate (Morphine) 8 mg IVPUSH ONETIME ONE Stop: 08/11/20 10:16 Last Admin: 08/11/20 11:14 Dose: 8 mg Documented by: Ondansetron HCl (Zofran) Confirm Administered Dose 4 mg .ROUTE .STK-MED ONE Stop: 08/11/20 07:45 Propofol (Diprivan 20 Ml) Confirm Administered Dose 600 mg .ROUTE .STK-MED ONE Stop: 08/11/20 07:45 Rocuronium [place] (Rocuronium [place]) Confirm Administered Dose 100 mg .ROUTE .STK-MED ONE Stop: 08/11/20 07:54 Sugammadex Sodium (Bridion) Confirm Administered Dose 200 mg .ROUTE .STK-MED ONE Stop: 08/11/20 07:34 Sugammadex Sodium (Bridion) Confirm Administered Dose 200 mg .ROUTE .STK-MED ONE Stop: 08/11/20 10:46 - Exam General: Alert, Oriented Neck: Supple Lungs: Normal Respiratory Effort GI/Abdominal Exam: Soft, Non-Tender, No Distention Extremities: Normal Inspection, Non-Tender, No Pedal Edema Skin: Warm Psy/Mental Status: Alert, Normal Affect, Normal Mood Sepsis Event Note - Evaluation Sepsis Screening Result: No Definite Risk - Focused Exam Vital Signs: Vital Signs Temp Pulse Resp BP Pulse Ox 08/12/20 08:00 36.3 C 62 17 102/48 L 93 L 08/12/20 04:00 36.6 C 50 L 18 88/48 L 95 08/12/20 00:30 36.4 C 54 L 18 82/38 L 91 L 08/11/20 21:48 62 18 96/45 L 86 L - Problem List & Annotations (1) Incomplete uterine prolapse SNOMED Code(s): 41719899251510696 Code(s): N81.2 - INCOMPLETE UTEROVAGINAL PROLAPSE Status: Acute Current Visit: Yes - Problem List Review Problem List Initiated/Reviewed/Updated: Yes - My Orders Last 24 Hours: Active Orders 24 hr Category Date Time Status Patient Status [ADT] Routine ADT 08/11/20 11:08 Active Antiembolic Devices [RC] PER UNIT ROUTINE Care 08/11/20 11:09 Active Notify Provider Intake and Out [RC] ASDIRECTED Care 08/11/20 11:08 Active Notify Provider Vital Signs [RC] ASDIRECTED Care 08/11/20 11:08 Active Oxygen Therapy [RC] ASDIRECTED Care 08/11/20 11:08 Active RT Incentive Spirometry [RC] Q2HWA Care 08/11/20 11:08 Active Ready for Discharge [RC] PER UNIT ROUTINE Care 08/12/20 08:52 Ordered Up With Assistance [RC] PER UNIT ROUTINE Care 08/11/20 11:08 Active Up ad Divina [RC] PER UNIT ROUTINE Care 08/11/20 11:08 Active Urinary Catheter Removal [RC] Per Unit Routine Care 08/11/20 11:08 Active Vital Signs [RC] Q4H Care 08/11/20 11:08 Active Regular Diet [DIET] Diet 08/11/20 Dinner Active Acetaminophen/oxyCODONE [Percocet 325-5 MG] Med 08/11/20 11:08 Active 1 tab PO Q4H PRN Acetaminophen/oxyCODONE [Percocet 325-5 MG] Med 08/11/20 11:08 Active 2 tab PO Q4H PRN Ketorolac [Toradol] Med 08/11/20 16:45 Active 30 mg IVPUSH Q6H Lactated Ringers [Ringers, Lactated] 1,000 ml Med 08/11/20 08:00 Active IV ASDIRECTED Morphine Med 08/11/20 11:08 Active 4 mg IVPUSH Q2H PRN Ondansetron [Zofran] Med 08/11/20 11:08 Active 4 mg IVPUSH Q6H PRN Promethazine [Phenergan] Med 08/11/20 11:08 Active 25 mg IM Q6H PRN Peripheral IV Discontinue [OM.PC] Routine Oth 08/11/20 11:08 Ordered Sequential Compression Device [OM.PC] Per Unit Routine Oth 08/11/20 11:08 Ordered Resuscitation Status Routine Resus Stat 08/11/20 11:08 Ordered Medication Orders Lactated Ringer's (Ringers, Lactated) 1,000 mls @ 125 mls/hr IV ASDIRECTED [facility] Last Admin: 08/11/20 12:20 Dose: 125 mls/hr Documented by: Infusion: 08/11/20 12:20 Dose: 125 mls/hr Documented by: Admin: 08/11/20 08:45 Dose: 125 mls/hr Documented by: ARTHUR Ketorolac Tromethamine (Toradol) 30 mg IVPUSH Q6H [facility] Last Admin: 08/12/20 05:18 Dose: 30 mg Documented by: Admin: 08/11/20 22:11 Dose: 30 mg Documented by: Admin: 08/11/20 15:58 Dose: 30 mg Documented by: PATTI Morphine Sulfate (Morphine) 4 mg IVPUSH Q2H PRN PRN Reason: Pain (severe 7-10) Ondansetron HCl (Zofran) 4 mg IVPUSH Q6H PRN PRN Reason: Nausea/Vomiting Oxycodone/Acetaminophen (Percocet 325-5 Mg) 1 tab PO Q4H PRN PRN Reason: Pain (moderate 4-6) Last Admin: 08/11/20 18:16 Dose: 1 tab Documented by: PATTI Oxycodone/Acetaminophen (Percocet 325-5 Mg) 2 tab PO Q4H PRN PRN Reason: Pain (moderate 4-6) Promethazine HCl (Phenergan) 25 mg IM Q6H PRN PRN Reason: Nausea/Vomiting - Assessment Assessment (Free Text/Narrative):: POD#1 after vaginal hysterectomy, stable, normal labs, pain well controlled. - Plan Plan (Free Text/Narrative):: After voiding, patient may be dismissed to home. Discharge instructions reviewed.
== END 2020-08-12 11:00 | disposition home or self-care (01) ==
LOC: MW.SDS 08:11 → MW.MS 11:06 → MW.SDS 08-12 11:00
PROVIDERS: ATTEND Obstetrics & Gynecology
DX: N81.2 Incomplete uterovaginal prolapse (principal); N80.0 Endometriosis of uterus; E66.9 Obesity, unspecified; Z68.32 Body mass index [BMI] 32.0-32.9, adult; Z79.899 Other long term (current) drug therapy
CPT/HCPCS: 36415; 51702; 57240; 58260; 80048; 85025; 86850; 86900; 86901; 88307; A9270; J0131; J0690; J1100; J1885; J1940; J2250; J2270; J2704; J3010; J3490; J7120; 00944; J2405